=== PATIENT | male | born 1975 | race Caucasian/White ===

== ENCOUNTER 2019-12-25 10:47 | Emergency (ER) | payer OTHER, SELFPAY ==
--- NOTE | ~2019-12-25 | XR_ITS ---
EXAMINATION: XR abdomen/kub 1V EXAM DATE: 12/25/2019 11:39 INDICATION: Right flank pain. Distal right ureteral stone. TECHNIQUE: Frontal projection(s) of the abdomen for interpretation. There is no prior study for sulma vazquez. FINDINGS: Right distal ureteral 3.5 mm stone is identified, indicated. Nonobstructive bowel gas pattern. Expect ed amount of colonic stool. There are no osseous abnormalities identified. There is no organomegaly. IMPRESSION: Right distal ureteral stone identified. Reviewed, dictated and finalized at location B.
--- NOTE | ~2019-12-25 | CT_ITS ---
EXAMINATION: CT abdomen pelvis wo con EXAM DATE: 12/25/2019 11:15 INDICATION: Right flank pain. TECHNIQUE: Spiral CT of the abdomen and pelvis was performed without contrast. Axial, coronal and sag ittal images were reviewed. The dose-length product (DLP) for this examination was 230.44 mGy-cm. T he exposure was tailored according to patient size (auto mA exposure control), and iterative reconstr uction (ASIR) was used as additional dose reduction technique. There is no prior study for compariso n. FINDINGS: There is right distal ureteral 3.5 mm stone, 2 cm from the ureterovesicular junction. Mild right-sided obstructive nephropathy. There are several punctate left calyceal stones. Small umbilical fat-containing hernia. The prostate is unremarkable. The bladder is collapsed at time of imaging li miting evaluation. The liver, spleen, adrenal glands and pancreas are unremarkable. Gallbladder is unremarkable. No biliary obstruction. There is no retroperitoneal or pelvic lymphadenopathy. The appendix is normal. The stomach and small bowel are unremarkable. There is expected amount of c olonic stool. No free intraperitoneal gas. The heart is normal in size. There are no pericardial or pleural effusions. The lung bases are unremarkable. The bones are unremarkable. IMPRESSION: 1. Right distal ureteral 3.5 mm stone, mild obstructive nephropathy. 2. Punctate left nephrolithiasis. Urologist consultants would appreciate KUB as baseline for follow-up, treatment planning. Reviewed, dictated and finalized at location B.
[2019-12-25 10:57] VITALS: BP 130/76; PULSE 87; RESP 18; TEMP 36.8; O2SAT 100
--- NOTE | 2019-12-25 10:58 | ED.ABDPAIN ---
HPI - Abdominal Pain General Chief Complaint: Abdominal Pain Stated Complaint: right flank Time Seen by Provider: 12/25/19 10:47 Source: patient and RN notes reviewed Mode of arrival: ambulatory Limitations: no limitations History of Present Illness HPI narrative: Pt is a 44 y/o male who presents to the ED with c/o colicky RLQ pain starting early this morning. He notes that his pain radiates into his rt flank. Pt reports nausea and 4-5 episodes of emesis, but denies any fever, chills, or other symptoms. He notes that he took Aleve and Prilosec for his symptoms. Pt states that he has no Hx of previous kidney stones. MD elicited complaint: abdominal pain Onset (ago): hour(s) (several) Pain Consistency: colicky Location: RLQ Radiation: R flank Associated symptoms: nausea and vomiting Treatments prior to arrival: NSAIDs (Aleve) Related Data Allergies Allergy/AdvReac Type Severity Reaction Status Date / Time Penicillins Allergy Mild Itching Verified 12/25/19 11:05 Sulfa (Sulfonamide Allergy Mild Itching Verified 12/25/19 11:05 Antibiotics) Review of Systems Review of Systems: All systems reviewed & are unremarkable except as noted in HPI and below Constitutional: Constitutional: Denies chills and Denies fever(s) Gastrointestinal: Gastrointestinal: Reports abdominal pain (RLQ pain radiating into rt flank), Reports nausea and Reports vomiting PMFSH Past Medical History Medical History Ankle fracture, right Surgical History Surgical History History of ankle surgery plates and screws placed to repair rt ankle fracture Hx of hand surgery rt hand Social History Social History Smoking status: Smoker, status unknown Exam Narrative: Exam Narrative: APPEARANCE: No acute distress, nontoxic, resting in bed HEENT: Normocephalic, atraumatic, OMM RESPIRATORY: No respiratory distress, clear to auscultation bilaterally with no rhonchi wheezing or rales CARDIOVASCULAR: RRR s murmur ABDOMINAL: Soft, nondistended, tender palpation right lower quadrant right upper quadrant, no tenderness left lower quadrant left lower quadrant, rebound or guarding, right flank tenderness MUSCULOSKELETAl: Moves all extremities. No clubbing, cyanosis or edema. NEURO: Awake and alert. Following commands, speech normal, no focal deficits SKIN:: Warm, dry. Normal Color PSYCHIATRIC: Normal affect/mood Course Course Emergency Course: Patient states he is feeling much better at this time Patient states that they are feeling much better at this time. States abdominal pain has resolved. Repeat abdominal exam shows the patient's abdomen to be soft and nontender. Discussed with patient results of workup and diagnosis. Discussed need for follow-up with primary care physician, reasons to return to the emergency department in proper use of medication. Patient understands and agrees to current treatment plan. Discussed with patient creatinine levels and need for recheck in 1 week Vital Signs Vital signs: Vital Signs Temperature 98.3 F 12/25/19 10:57 Pulse Rate 87 12/25/19 10:57 Respiratory Rate 18 12/25/19 10:57 Blood Pressure 130/76 12/25/19 10:57 Pulse Oximetry 100 12/25/19 10:57 Temperature 98.3 F 12/25/19 10:57 Pulse Rate 87 12/25/19 10:57 Respiratory Rate 18 12/25/19 10:57 Blood Pressure 130/76 12/25/19 10:57 Pulse Oximetry 100 12/25/19 10:57 MDM - Abdominal Pain Lab Data Result diagrams: 12/25/19 11:04 12/25/19 11:04 Labs: Lab Results 12/25/19 12/25/19 12/25/19 Range/Units 11:03 11:04 11:04 WBC 10.6 H (4.5-10.0) K/mm3 RBC 4.80 (4.6-6.20) M/mm3 Hgb 14.4 (14.0-18.0) g/dL Hct 43.0 (42.0-52.0) % MCV 89.6 (80-100) fl MCH 30.0 (26-34) pg MCHC 33.5 (32-36) g/dl RDW 12.3 (11.5-14.5) % Plt Count
[2019-12-25 11:14] LABS: Basophils Percent Auto 0.3 % (0.2-1.2); Eosinophils Percent Auto 0.1 % (0-4.4); Hemoglobin 14.4 g/dL (14.0-18.0); Immature Granulocyte Absolute 0.04 K/mm3 (0.00-0.031); Immature Granulocyte Percent A 0.4 % (0-0.5); Lymphocytes Absolute Auto 1.21 K/mm3 (0.9-3.2); Lymphocytes Percent Auto 11.4 % (18.3-44.2); Mean Corpuscular HGB Conc 33.5 g/dl (32-36); Mean Corpuscular Volume 89.6 fl (80-100); Mean Platelet Volume 10.1 fl (7.4-10.4); Monocytes Absolute Auto 0.6 K/mm3 (0.1-0.6); Monocytes Percent Auto 5.2 % (2.6-8.5); Neutrophils Absolute Auto 8.7 K/mm3 (1.3-6.7); Neutrophils Percent Auto 82.6 % (45.5-73.1); Platelet Count Result 222 k/mm3 (150-375); Red Cell Distribution Width 12.3 % (11.5-14.5); White Blood Count 10.6 K/mm3 (4.5-10.0)
[2019-12-25 11:17] LABS: Add Urine Microscopic? YES; Appearance Urine Clear (Clear); Bilirubin Urine Negative (Negative); Blood Urine Negative (Negative); Color Urine Yellow (Yellow); Glucose Urine UA Negative (Negative); Ketones Urine Negative (Negative); Leukocyte Esterase Ur Negative LEU/UL (Negative); Mucus Urine Rare /lpf; Nitrate Urine Negative (Negative); Protein Urine 2+ mg/dL (Negative); Squamous Epithelial Cell Urine Rare /hpf (Few); Urobilinogen Urine Negative mg/dL (<2.0); WBC Urine 0-3 /hpf
[2019-12-25] MEDS: SODIUM CHLORIDE 0.9% IV 1,000 ML 999 ML IV CONT (11:26)
[2019-12-25 11:27] LABS: Alanine Aminotransferase 20 U/L (4-50); Albumin Level 4.6 g/dL (3.5-5.1); Alkaline Phosphatase 90 U/L (38-126); Aspartate Amino Transferase 23 U/L (17-59); Bilirubin,Total 0.7 mg/dL (0.2-1.3); Blood Urea Nitrogen 18 mg/dL (9-20); Calcium 9.7 mg/dL (8.4-10.2); Carbon Dioxide 29 mmol/L (22-30); Chloride 105 mmol/L (98-107); Estimated CRCL calculation 55 ml/min; Estimated Glomerular Filt Rate 44; Glucose 121 mg/dL (75-110); Lipase 61 U/L (23-300); Potassium 4.3 mmol/L (3.4-5.0); Sodium 139 mmol/L (137-145)
[2019-12-25] MEDS: ONDANSETRON INJ 4 MG/2 ML VIAL IV PUSH (11:28)
[2019-12-25] MEDS: TAMSULOSIN HCL 0.4 MG CAPSULE PO (11:43)
--- NOTE | 2019-12-25 11:45 | PC.NURSE ---
assuming care of pt from Yasemin NAVARRETE. Pt is A&Ox 4. Pt states he has flank pain. PT states pain is only when the stone moves. Pt appears in NAD at this time. Pt aware of POC. Pt has call light in reach
[2019-12-25 12:30] VITALS: BP 139/82; PULSE 86; RESP 18; O2SAT 100
== END 2019-12-25 12:32 | disposition home or self-care (01) ==
PROVIDERS: Emergency Provider Emergency Medicine
DX: N20.1 Calculus of ureter (principal); N13.8 Other obstructive and reflux uropathy; N20.0 Calculus of kidney; N28.9 Disorder of kidney and ureter, unspecified
CPT/HCPCS: 36415; 74018; 74176; 80053; 81001; 83690; 85025; 96361; 96365; 96375; 99284; A9270; J0131; J2405; J7030

== ENCOUNTER 2019-12-27 11:55 | Observation (INO) | payer OTHER, SELFPAY ==
[2019-12-27] VITALS (22 sets, daily range): BP systolic 121–159; BP diastolic 74–97; PULSE 58–72; RESP 16–20; TEMP 36.4–36.7; O2SAT 92–100; BMI 28.2
--- NOTE | ~2019-12-27 | XR_ITS ---
EXAMINATION: XR retrograde pyelo w/stent RT DATE: 12/28/2019 08:20 INDICATION: Right ureteral stone. TECHNIQUE: 38 intraoperative fluoroscopic images of the abdomen and pelvis were obtained. I was not p resent. Fluoroscopy exposure time was 40 seconds. COMPARISON: CT abdomen and pelvis 12/25/2019 FINDINGS: The right-sided retrograde pyelogram is unremarkable. The final images demonstrate a right internal ureteral stent in expected position. IMPRESSION: 1. Right internal ureteral stent in expected position. Reviewed, dictated and finalized at location A.
--- NOTE | ~2019-12-27 | XR_ITS ---
EXAMINATION: XR abdomen/kub 1V INDICATION: Right ureterolithiasis, right flank pain TECHNIQUE: Supine views of the abdomen were obtained on 2 radiographs. COMPARISON: 12/25/2019 FINDINGS: A subtle 4 mm calcification projects over the right sacrum in a position similar to the [facility] examination at the expected location of the right distal ureter. Phleboliths are noted in the left pelvis. A moderate volume of colonic stool is present. IMPRESSION: 1. Unchanged subtle 4 mm calcification of the right pelvis, consistent with right distal ureteral sto ne. Reviewed, dictated and finalized at location B. IMPRESSION: 1. Unchanged subtle 4 mm calcification of the right pelvis, consistent with rig ht distal ureteral stone.
--- NOTE | 2019-12-27 12:36 | PC.NURSE ---
Pt was here earlier this week and diagnosed with kidney stone to R ureter. Pt taking meds that he was sent home with and pain is not improving. Pt states he has R flank pain and is sleeping from pain meds. Pt is A&Ox4. Pt has R sided CVA. Pt has family at bedside and call light in reach
[2019-12-27 12:40] LABS: Basophils Percent Auto 0.2 % (0.2-1.2); Eosinophils Absolute Auto 0.1 K/mm3 (0-0.3); Eosinophils Percent Auto 0.6 % (0-4.4); Hemoglobin 12.9 g/dL (14.0-18.0); Immature Granulocyte Absolute 0.04 K/mm3 (0.00-0.031); Immature Granulocyte Percent A 0.4 % (0-0.5); Lymphocytes Absolute Auto 1.52 K/mm3 (0.9-3.2); Lymphocytes Percent Auto 15.9 % (18.3-44.2); Mean Corpuscular HGB Conc 33.9 g/dl (32-36); Mean Corpuscular Hemoglobin 30.1 pg (26-34); Mean Corpuscular Volume 88.8 fl (80-100); Monocytes Absolute Auto 0.8 K/mm3 (0.1-0.6); Monocytes Percent Auto 8.8 % (2.6-8.5); Neutrophils Absolute Auto 7.1 K/mm3 (1.3-6.7); Neutrophils Percent Auto 74.1 % (45.5-73.1); Platelet Count Result 171 k/mm3 (150-375); Red Blood Count 4.28 M/mm3 (4.6-6.20); Red Cell Distribution Width 12.1 % (11.5-14.5); White Blood Count 9.5 K/mm3 (4.5-10.0)
--- NOTE | 2019-12-27 12:40 | ED.ABDPAIN ---
HPI - Abdominal Pain General Chief Complaint: Urogenital-Male <Beth Schroeder PA-C - Last Filed: 12/27/19 16:13> Stated Complaint: kidney stone <RK Ling Last Filed: 12/27/19 16:13> Time Seen by Provider: 12/27/19 12:12 <RK Ling Last Filed: 12/27/19 16:13> Source: patient <RK Ling Last Filed: 12/27/19 16:13> Mode of arrival: ambulatory <RK Ling Last Filed: 12/27/19 16:13> Limitations: no limitations <RK Ling Last Filed: 12/27/19 16:13> History of Present Illness HPI narrative: This is a 44 year old male that presents to the ER for right sided flank/abdominal pain x 2 days. Reports he was seen here for this on Monday and diagnosed with a kidney stone. Reports he was sent home on Flomax, pain medication and nausea medication. Reports since he has had increasing pain in the right flank and right side of the abdomen. Reports he has been nauseous and has not been able to eat much. Denies fever, vomiting, dysuria, hematuria. <Beth Schroeder PA-C - Last Filed: 12/27/19 16:13> Related Data Home Medications: Home Medications Medication Instructions Recorded Confirmed Prilosec OTC 20 mg PO PRN PRN 12/27/19 12/27/19 <Beth Schroeder PA-C - Last Filed: 12/27/19 16:13> Allergies/Adverse Reactions: Allergies Allergy/AdvReac Type Severity Reaction Status Date / Time Penicillins Allergy Mild Itching Verified 12/25/19 11:05 Sulfa (Sulfonamide Allergy Mild Itching Verified 12/25/19 11:05 Antibiotics) <RK Ling Last Filed: 12/27/19 16:13> Review of Systems Review of Systems: Narrative: CONSTITUTIONAL: Denies fever GASTROINTESTINAL: Reports abdominal pain, nausea. Denies vomiting, or diarrhea. GENITOURINARY: Denies dysuria or hematuria. MUSCULOSKELETAL: Reports back pain <Beth Schroeder PA-C - Last Filed: 12/27/19 16:13> All systems reviewed & are unremarkable except as noted in HPI and below <Beth Schroeder PA-C - Last Filed: 12/27/19 16:13> [facility] Past Medical History Medical History: Medical History (Updated 12/28/19 @ 07:37 by Jared Viveros, DO) Ankle fracture, right GERD (gastroesophageal reflux disease) Ureterolithiasis <Beth Schroeder PA-C - Last Filed: 12/27/19 16:13> Surgical History Surgical History: Surgical History History of ankle surgery plates and screws placed to repair rt ankle fracture Hx of hand surgery rt hand <Beth Schroeder PA-C - Last Filed: 12/27/19 16:13> Social History Social History: Social History Smoking status: Never smoker Alcohol intake: current Drinks per week: 1 Substance use: never Gender identity (if verbalized by the patient): Male Spiritual care concerns: No Agree to blood products: Yes <Beth Schroeder PA-C - Last Filed: 12/27/19 16:13> Exam Narrative: Exam Narrative: GENERAL: Well-appearing, well-nourished, and in no acute distress. HEAD: Normocephalic, atraumatic. EYES: EOMI. CHEST: Clear to auscultation. No respiratory distress. No wheezes rales or rhonchi HEART: Regular rate and rhythm. No murmur heard. Normal peripheral pulses. ABDOMEN: Soft, nondistended, normal active bowel sounds. Mild tenderness to palpation of the right side of the abdomen, without guarding. Right sided CVA tenderness EXTREMITIES: Normal range of motion. No edema. SKIN: Warm, dry, no rash. NEURO: No focal deficits. Alert and oriented x3. PSYCH: Normal mood and affect <RK Ling Last Filed: 12/27/19 16:13> Course CHIEF RADIOLOGIC TECHNOLOGIST/PA Physician Supervision Patient presented for kidney continued flank pain due to his kidney stone. On exam, pt is alert, comfortable, conversant, no abdominal pain or flank pain on exam. Abd is soft, non tender. Patient without sign of urina
[2019-12-27 12:45] LABS: Add Urine Microscopic? YES; Appearance Urine Clear (Clear); Bilirubin Urine Negative (Negative); Blood Urine Negative (Negative); Color Urine Yellow (Yellow); Glucose Urine UA Negative (Negative); Ketones Urine Trace mg/dL (Negative); Leukocyte Esterase Ur Negative LEU/UL (Negative); Mucus Urine Moderate /lpf; Nitrate Urine Negative (Negative); Protein Urine 1+ mg/dL (Negative); Squamous Epithelial Cell Urine Rare /hpf (Few); WBC Urine 0-3 /hpf
[2019-12-27] MEDS: SODIUM CHLORIDE 0.9% IV 1,000 ML 999 ML IV CONT (12:46)
[2019-12-27 12:47] LABS: Specific Grav Ur 1.032 (1.001-1.035)
[2019-12-27] MEDS: MORPHINE SULFATE 4 MG/ML INJ IV PUSH ×3 (12:47→21:24)
[2019-12-27] MEDS: ONDANSETRON INJ 4 MG/2 ML VIAL IV PUSH ×2 (12:47→18:16)
[2019-12-27 12:53] LABS: Blood Urea Nitrogen 18 mg/dL (9-20); Calcium 8.7 mg/dL (8.4-10.2); Carbon Dioxide 30 mmol/L (22-30); Chloride 102 mmol/L (98-107); Estimated CRCL calculation 52 ml/min; Estimated Glomerular Filt Rate 41; Glucose 103 mg/dL (75-110); Potassium 4.1 mmol/L (3.4-5.0); Sodium 136 mmol/L (137-145)
--- NOTE | 2019-12-27 16:25 | PM.IMHP ---
H&P: HPI History of Present Illness Chief complaint: ureterolithiasis Narrative: Bang Leblanc is a 44 year old male without prior significant urological, or other medical history. He initially presented to the ER on Monday for 8 with acute onset right flank pain radiating to his right lower quadrant. This was associated with nausea and vomiting and mild irritable voiding symptoms. CT imaging at that time demonstrated a 4 mm partially obstructing right distal ureteral calculus. He attempted management as an outpatient without much success. He has continued to have fairly consistent right flank pain with ongoing nausea and intermittent vomiting. He denies fevers chills or gross hematuria. He has no prior known history of urolithiasis. Review of Systems Constitutional: Constitutional: Denies chills, Denies fatigue, Denies fever(s) and Denies headache(s) Eyes: Eyes: Denies blurry vision ENT: Denies vertigo, Denies dizziness, Denies headache(s) and Denies sore throat Cardiovascular: Cardiovascular: Denies chest pain, Denies syncope, Denies lightheadedness, Denies palpitations, Denies dyspnea and Denies dyspnea on exertion Respiratory: Respiratory: Denies hemoptysis, Denies dyspnea and Denies dyspnea on exertion Gastrointestinal: Gastrointestinal: Denies melena, Denies bloating, Denies hematochezia, Denies change in bowel habits, Denies change in stool character, Denies constipation, Denies diarrhea and Reports vomiting Genitourinary: Genitourinary: Denies hematuria, Denies dysuria, Denies testicular pain, Denies urinary frequency, Denies urinary hesitancy and Denies urinary urgency Integumentary/Breasts: Skin/Breast: Denies pruritus, Denies lesions and Denies rash Neurologic: Denies confusion, Denies vertigo, Denies dizziness, Denies syncope and Denies headache(s) Psychiatric: Psychiatric: Denies anxiety, Denies change in appetite and Denies confusion Endocrine: Endocrine: Denies fatigue and Denies palpitations PMFSH Past Medical History Medical History Ankle fracture, right Surgical History Surgical History History of ankle surgery plates and screws placed to repair rt ankle fracture Hx of hand surgery rt hand Social History Social History Smoking status: Smoker, status unknown Meds Home Medications and Allergies Home Medications Medication Instructions Recorded Confirmed Type hydrocodone-acetaminophen 1 tablet PO Q4H PRN #10 tablet 12/25/19 Rx ondansetron 4 mg PO Q6H PRN #10 tablet 12/25/19 Rx tamsulosin [Flomax] 0.4 mg PO DAILY #5 cap 12/25/19 Rx Allergies Allergy/AdvReac Type Severity Reaction Status Date / Time Penicillins Allergy Mild Itching Verified 12/25/19 11:05 Sulfa (Sulfonamide Allergy Mild Itching Verified 12/25/19 11:05 Antibiotics) Vital Signs Vital Signs - 24 hr 12/27/19 12:05 12/27/19 12:50 12/27/19 12:55 Temperature 97.8 F Pulse Rate 66 68 Respiratory Rate 20 16 Blood Pressure 151/96 H Pulse Oximetry 100 98 92 12/27/19 13:00 12/27/19 13:15 12/27/19 13:30 Temperature Pulse Rate Respiratory Rate Blood Pressure Pulse Oximetry 94 96 93 12/27/19 13:45 12/27/19 14:02 12/27/19 14:16 Temperature Pulse Rate Respiratory Rate Blood Pressure Pulse Oximetry 97 97 98 12/27/19 14:30 12/27/19 14:31 12/27/19 14:45 Temperature Pulse Rate Respiratory Rate Blood Pressure 129/80 Pulse Oximetry 98 96 97 12/27/19 15:00 12/27/19 15:01 12/27/19 15:15 Temperature Pulse Rate Respiratory Rate Blood Pressure 121/80 Pulse Oximetry 95 96 96 12/27/19 15:30 12/27/19 15:31 12/27/19 15:52 Temperature Pulse Rate Respiratory Rate Blood Pressure 131/77 Pulse Oximetry 97 97 97 12/27/19 16:00 12/27/19 16:01 Temperature
--- NOTE | 2019-12-27 17:00 | ADMGEN ---
This patient, Bang Leblanc, was admitted to 2 Medical Room 247-. Patient/family oriented to hospital policies and general routines including ID bracelet, bed and alarms, visiting hours, pain management, procedures, bathroom and other care routines, personal items, smoking policy, room service/diet, and visiting hours. Valuables list has been completed. Information on how to activate the Rapid Response Team has been discussed. Patient/Family are encouraged to report perceived risks to care and to ask questions if they do not understand what they are told or what they should do.
[2019-12-27] MEDS: SODIUM CHLORIDE 0.9% IV 1,000 ML 125 ML IV CONT (17:37)
[2019-12-28] VITALS (7 sets, daily range): BP systolic 126–136; BP diastolic 72–87; PULSE 64–81; RESP 12–18; TEMP 36.7–37.1; O2SAT 94–99
[2019-12-28] MEDS: MORPHINE SULFATE 4 MG/ML INJ IV PUSH (01:08)
[2019-12-28] MEDS: ONDANSETRON INJ 4 MG/2 ML VIAL IV PUSH ×2 (01:08→05:43)
[2019-12-28] MEDS: SODIUM CHLORIDE 0.9% IV 1,000 ML 125 ML IV CONT (01:09)
--- NOTE | 2019-12-28 07:37 | WPDANESEPPF ---
Anes - Initial Pre Proc Eval Procedure: Operation Date: 12/28/19 07:30 Proposed Procedures p Cystoscopy, Right Ureteroscopy, Right Retrograde Pyelogram, Right Stone Extraction, Possible Right Stent Placement - Sary Vickers MD s Possible Holmium Laser Procedure - Sary Vickers MD Date/Time: 12/28/19 07:37 Surgeon: Rodolfo Hudson MD Pre Op Diagnosis: ureterolithiasis Patient Data Age: 44 Gender: M Height: 1.83 m Weight: 94.4 kg Last Vital Signs Temp 37.1 C 12/28/19 06:00 Pulse 72 12/28/19 06:00 Resp 16 12/28/19 06:00 BP 136/87 12/28/19 06:00 Pulse Ox 96 12/28/19 06:00 Allergies Allergy/AdvReac Type Severity Reaction Status Date / Time Penicillins Allergy Mild Itching Verified 12/25/19 11:05 Sulfa (Sulfonamide Allergy Mild Itching Verified 12/25/19 11:05 Antibiotics) Home Medications Medication Instructions Recorded Confirmed Type omeprazole magnesium [Prilosec OTC] 20 mg PO PRN PRN 12/27/19 12/27/19 History Laboratory Tests 12/27/19 12/27/19 12/27/19 12:32 12:32 12:32 WBC 9.5 K/mm3 K/mm3 (4.5-10.0) RBC 4.28 M/mm3 L M/mm3 (4.6-6.20) Hgb 12.9 g/dL L g/dL (14.0-18.0) Hct 38.0 % L % (42.0-52.0) MCV 88.8 fl fl (80-100) MCH 30.1 pg pg (26-34) MCHC 33.9 g/dl g/dl (32-36) RDW 12.1 % % (11.5-14.5) Plt Count 171 k/mm3 k/mm3 (150-375) MPV 10.0 fl fl (7.4-10.4) Immature Gran % (Auto) 0.4 % % (0-0.5) Neut % (Auto) 74.1 % H % (45.5-73.1) Lymph % (Auto) 15.9 % L % (18.3-44.2) [place] % (Auto) 8.8 % H % (2.6-8.5) Eos % (Auto) 0.6 % % (0-4.4) Baso % (Auto) 0.2 % % (0.2-1.2) Lymph # (Auto) 1.52 K/mm3 K/mm3 (0.9-3.2) [place] # (Auto) 0.8 K/mm3 H K/mm3 (0.1-0.6) Eos # (Auto) 0.1 K/mm3 K/mm3 (0-0.3) Baso # (Auto) 0.0 K/mm3 K/mm3 (0.0-0.1) Abs Immat Gran (auto) 0.04 K/mm3 H K/mm3 (0.00-0.031) Absolute Neuts (auto) 7.1 K/mm3 H K/mm3 (1.3-6.7) Absolute Nucleated RBC 0.0 K/mm3 K/mm3 (0.0-0.012) Nucleated RBC % 0.0 % % (0.0-0.2) Sodium 136 mmol/L L mmol/L (137-145) Potassium 4.1 mmol/L mmol/L (3.4-5.0) Chloride 102 mmol/L mmol/L (98-107) Carbon Dioxide 30 mmol/L mmol/L (22-30) BUN 18 mg/dL mg/dL (9-20) Creatinine 1.80 mg/dL H mg/dL (0.7-1.3) Estim Creat Clear Calc 52 ml/min ml/min Estimated GFR 41 L (59 - ) Glucose 103 mg/dL mg/dL (75-110) Calcium 8.7 mg/dL mg/dL (8.4-10.2) Urine Color Yellow (Yellow) Urine Appearance Clear (Clear) Urine pH 6.0 (5.0-9.0) Ur Specific [place] 1.032 (1.001-1.035) Urine Protein 1+ mg/dL H mg/dL (Negative) Urine Glucose (UA) Negative mg/dL mg/dL (Negative) Urine Ketones Trace mg/dL mg/dL (Negative) Ur Blood (Man) Negative (Negative) Urine Nitrate Negative (Negative) Urine Bilirubin Negative (Negative) Urine Urobilinogen 2.0 mg/dL H mg/dL (<2.0) Leukocyte Esterase Rfl Negative RACHID/UL RACHID/UL (Negative) Urine RBC 3-5 /hpf H /hpf (0-2) Urine WBC 0-3 /hpf /hpf Ur Squamous Epith Cells Rare /hpf /hpf (Few) Urine Mucus Moderate /lpf H /lpf Patient hx anesthesia problems: none Family hx anesthesia problems: none PMFSH Past Medical History Medical History (Updated 12/28/19 @ 07:37 by Jared Viveros DO) Ankle fracture, right GERD (gastroesophageal reflux disease) Ureterolithiasis Surgical History Surgical History History of ankle surgery plates and screws placed to repair rt ankle fracture Hx of perdomo
[2019-12-28] MEDS: ceFAZolin SODIUM 1 GM VIAL 2 GM IV PUSH (08:06)
[2019-12-28] MEDS: LIDOCAINE HCL 2% GEL UROJET 10 ML PKG MUCOUS MEM (08:07)
--- NOTE | 2019-12-28 08:16 | PM.PROC ---
Procedure Note - Detailed Date of procedure: 12/28/19 Pre-op diagnosis: ureterolithiasis Surgeon: Sary Vickers MD Preop Dx: right ureteral stone Postop Dx: right ureteral stone Procedure: cystoscopy, right retrograde pyelogram, right ureteroscopy with stone extraction and placement of right 4.8 VL stent Anesthesia: LMA/local Indication: 44 yo WM with 4 mm right distal ureteral stone with ongoing renal colic despite a trial of stone passage. He elected to proceed with cystoscopy, ureteroscopic stone extraction, and possible stent placement. He understood the risks including but not limited to bleeding, infection, stent pain/irritation and damage to urinary tract. He elected to proceed. Description of Procedure: Pt was correctly identified and informed consent was obtained. He was brought to the OR and a formal timeout was performed. General anesthesia was induced via LMA. He received IV antibiotics. He was placed in dorsal lithotomy position, prepped and draped in a sterile fashion. A rigid cystoscope was inserted through the urethra into the bladder. The urethra was normal. The bladder was examined in a systematic fashion. There were no masses, stones, tumors or trabeculations. The right UO was cannulated with a straight glidewire. The distal ureter was dilated with 8/10 coaxial dilator. I advanced the rigid ureteroscope into the distal ureter and encountered the 4 mm stone. There was significant edema where the stone was logged. I was able to grasp and remove the stone with a zero-tip nitinol basket. No additional stone fragments were seen. Due to the fact that the intramural tunnel was tight and there was significant edema at the site of the stone, I elected to place a ureteral stent to facilitate healing and prevent obstruction from the edema. Using an 8fr coaxial dilator, a gentle retrograde pyelogram was performed. He was noted to have mild right hydronephrosis. A 4.8 Fr VL stent was then placed under fluoroscopic guidance with a curl in the renal pelvis and another curl in the bladder. The bladder was drained of its contents and 2% lidocaine jelly was inserted. He was awakened and taken to PACU in stable condition. Sponge/instrument/needle counts: correct Specimen: stone for analysis EBL: minimal IVF: see anesthesia record Complications: none
[2019-12-28] MEDS: LACTATED RINGERS 1,000 ML 30 ML IV CONT (08:26)
== END 2019-12-28 13:08 | disposition home or self-care (01) ==
LOC: ANHED 16:03 → ANH2MED 16:23
PROVIDERS: Physician Assistant; Admitting Provider Urology; Emergency Provider Emergency Medicine; Visit Provider Urology
PROC: (CPT 52352; principal; 2019-12-28 07:30)
DX: N13.2 Hydronephrosis with renal and ureteral calculous obstruction (principal); N17.9 Acute kidney failure, unspecified; K21.9 Gastro-esophageal reflux disease without esophagitis; Z79.899 Other long term (current) drug therapy; Z88.0 Allergy status to penicillin; Z88.2 Allergy status to sulfonamides
CPT/HCPCS: 52352; 52332; 36415; 74018; 74420; 80048; 81001; 82365; 85025; 88300; 96361; 96365; 96374; 96375; 96376; 99285; A9270; C1769; C2617; G0378; J0131; J0690; J1100; J2250; J2270; J2405; J2704; J3010; J7030; J7120